=== PATIENT | female | born 1980 | race Caucasian/White ===

== ENCOUNTER → 2016-06-19 | Outpatient (CLI) | payer MEDICAID ==
[2016-06-19 16:09] LABS: HEMATOCRIT 36.6 % (36.0-47.0); HEMOGLOBIN 11.8 g/dL (12.0-15.5); HGB HCT DIFFERENCE -1.2; MEAN CORPUSCULAR HGB CONC 32.3 g/dL (32.0-36.0); MEAN CORPUSCULAR VOLUME 90 fl (80-97); RED BLOOD COUNT 4.08 10^6/uL (3.72-5.28); RED CELL DISTRIBUTION WIDTH 13.9 % (11.5-14.0); WHITE BLOOD COUNT 7.4 10^3/uL (4.0-10.5)
[2016-06-19 16:29] LABS: ALANINE AMINOTRANSFERASE 32 U/L (9-52); ALBUMIN 3.8 g/dL (3.5-5.0); ALKALINE PHOSPHATASE 89 U/L (38-126); ANION GAP 13 (5-19); ASPARTATE AMINO TRANSFERASE 25 U/L (14-36); BILIRUBIN,TOTAL 0.5 mg/dL (0.2-1.3); BLOOD UREA NITROGEN 13 mg/dL (7-20); CALCIUM 9.3 mg/dL (8.4-10.2); CARBON DIOXIDE 23 mmol/L (22-30); CHLORIDE 106 mmol/L (98-107); CREATININE RESULT 0.79 mg/dL (0.52-1.25); GLUCOSE 73 mg/dL (75-110); POTASSIUM 4.1 mmol/L (3.6-5.0); SODIUM 141.9 mmol/L (137-145); TOTAL PROTEIN 7.3 g/dL (6.3-8.2)
[2016-06-19 16:54] LABS: THYROID STIMULATING HORMONE 1.78 uIU/mL (0.47-4.68)
== END ==
LOC: OD 15:01
PROVIDERS: ATTEND Physician Assistant Surgical
DX: R63.4 Abnormal weight loss (principal)
CPT/HCPCS: 36415; 80053; 84439; 84443; 85027

== ENCOUNTER → 2016-08-28 | Outpatient (CLI) | payer MEDICAID | LOC: OD 15:22 | PROVIDERS: ATTEND Internal Medicine Gastroenterology | DX: R93.5 Abnormal findings on diagnostic imaging of other abdominal regions, including retroperitoneum (principal) | CPT/HCPCS: 74020 ==

== ENCOUNTER 2017-03-19 07:41 | Emergency (ER) | payer MEDICAID ==
[2017-03-19] MEDS ORDERED: PANTOPRAZOLE SODIUM 40 MG VIAL IV ONE (07:47)
--- NOTE | 2017-03-19 07:51 | ER Document Report ---
ED General - General Stated Complaint: VOMITING Time Seen by Provider: 03/19/17 07:46 Notes: 36-year-old female with cerebral palsy mental retardation, baseline nonverbal, presents via EMS from [facility] for reported emesis. A couple times she vomited, and apparently was malodorous and "like coffee grounds." She had borderline hypertension which is her baseline, en route with EMS and her normal heart rate. She is unable to communicate and tell me what is going on. Apparently per the facility she has not been eating or drinking or interacting as much lately. TRAVEL OUTSIDE OF THE [place] IN LAST 30 DAYS: No - Related Data Allergies/Adverse Reactions: amoxicillin [From Augmentin] Adverse Reaction (Intermediate, Verified 03/06/16 16:35) Diarrhea clavulanic acid [From Augmentin] Adverse Reaction (Intermediate, Verified 16:35) Diarrhea Past Medical History - Social History Smoking Status: Never Smoker Family History: None - Past Medical History Cardiac Medical History: Denies: Hx Coronary Artery Disease, Hx Heart Attack, Hx Hypertension Pulmonary Medical History: Denies: Hx Asthma, Hx Bronchitis, Hx COPD, Hx Pneumonia Neurological Medical History: Denies: Hx Cerebrovascular Accident, Hx Seizures Musculoskeltal Medical History: Reports Hx Arthritis - HIPS Past Surgical History: Denies: Hx Hysterectomy - Immunizations Hx Diphtheria, Pertussis, Tetanus Vaccination: Yes - 03/03/08 Hx Pneumococcal Vaccination: 04/15/07 Course - Re-evaluation Re-evalutation: 03/19/17 09:25 Patient presents with vomiting a few times as well as decreased oral intake, suspected coffee-ground that facility. This cannot be verified. Her abdomen is benign and her vital signs are normal. She had a stool in her diaper which I looked at, and was clearly brown with no blood. She did not vomit in the ED. Differential includes vomiting from constipation or other source such as UTI, Isabel-Antunez tear, doubt serious GI bleed. Labs were sent and show slightly decreased hemoglobin from baseline of 12-11.3. Remainder of labs are normal, including no signs of acute kidney injury from dehydration. X-rays are pending for obstruction. Patient is well appearing, and will be empirically hydrated in the ED. 03/19/17 10:15 Patient's x-ray shows large amount of stool in the colon without obstruction. Labs are significant for very mild elevated white count and slightly decreased hemoglobin. Despite this I still do not think the patient's having a GI bleed. She has a history of ruminating vomiting and chewing and vomiting and chewing her food. I spoke with her appraisal technician who states that she is about at her baseline. After hydration she was given pudding and tolerated this. I think that she is stable for discharge but should be referred to GI for a possible slow GI bleed, this was done and I told the appraisal technician about it. Insert discharge - Laboratory Result Diagrams: 03/19/17 08:25 03/19/17 08:25 Laboratory results interpreted by me: 03/19/17 08:25 WBC 12.0 H Hgb 11.3 L Hct 35.3 L RDW 14.1 H Absolute Neutrophils 8.7 H - Diagnostic Test Radiology reviewed: Image reviewed, Reports reviewed Discharge - Discharge Clinical Impression: Vomiting Condition: Good Disposition: HOME, SELF-CARE Additional Instructions: There may have been some blood in the vomit today however the lab testing was essentially normal. That said, I am referring you to gastroenterology because you might require an endoscopy. Return to the ER for black stool dizziness low blood pressure or further vomiting containing blood. Referrals: TESSY MÉNDEZ MD [Primary Care Provider] - Follow up as needed [facility]STR[facility] [Provider Group] - Follow up in 1 week
[2017-03-19 08:49] LABS: ABSOLUTE BASOPHILS # (AUTO) 0.1 10^3/uL (0.0-0.2); ABSOLUTE EOSINOPHILS # (AUTO) 0.2 10^3/uL (0.0-0.6); ABSOLUTE LYMPHOCYTES (AUTO) 2.3 10^3/uL (0.5-4.7); ABSOLUTE MONOCYTES (AUTO) 0.8 10^3/uL (0.1-1.4); ABSOLUTE NEUT (AUTO) 8.7 10^3/uL (1.7-8.2); BASOPHILS % (AUTO) 0.4 % (0-2); EOSINOPHILS % (AUTO) 1.3 % (0-6); HEMATOCRIT 35.3 % (36.0-47.0); HEMOGLOBIN 11.3 g/dL (12.0-15.5); HGB HCT DIFFERENCE -1.4; LYMPHOCYTES % (AUTO) 19.4 % (13-45); MEAN CORPUSCULAR HEMOGLOBIN 28.9 pg (27.0-33.4); MEAN CORPUSCULAR HGB CONC 32.1 g/dL (32.0-36.0); MEAN CORPUSCULAR VOLUME 90 fl (80-97); MONOCYTES % (AUTO) 6.3 % (3-13); RED BLOOD COUNT 3.91 10^6/uL (3.72-5.28); RED CELL DISTRIBUTION WIDTH 14.1 % (11.5-14.0); SEGMENTED NEUTROPHILS % (AUTO) 72.6 % (42-78)
[2017-03-19 08:54] LABS: APPEARANCE,URINE CLEAR; BILIRUBIN,URINE NEGATIVE (NEGATIVE); GLUCOSE, URINE NEGATIVE (NEGATIVE); KETONES,URINE NEGATIVE (NEGATIVE); LEUKOCYTE ESTERASE,URINE NEGATIVE (NEGATIVE); NITRITE,URINE NEGATIVE (NEGATIVE); PROTEIN,URINE NEGATIVE (NEGATIVE); URINE SPECIFIC GRAVITY 1.005; UROBILINOGEN,URINE NEGATIVE mg/dL (<2.0)
[2017-03-19 08:58] LABS: WBC,URINE 0-1 /HPF
[2017-03-19 09:06] LABS: ANION GAP 11 (5-19); BLOOD UREA NITROGEN 19 mg/dL (7-20); CALCIUM 8.5 mg/dL (8.4-10.2); CARBON DIOXIDE 26 mmol/L (22-30); CHLORIDE 105 mmol/L (98-107); CREATININE RESULT 0.53 mg/dL (0.52-1.25); GLUCOSE 76 mg/dL (75-110); LIPASE 202.3 U/L (23-300); POTASSIUM 4.6 mmol/L (3.6-5.0); SODIUM 142.3 mmol/L (137-145)
[2017-03-19] MEDS ORDERED: NORMAL SALINE 1000 ML 1,000 ML IV ONE (09:25)
--- NOTE | 2017-03-19 09:53 | RADIOLOGY REPORT (SQ) ---
EXAM DESCRIPTION: ABDOMEN 2 VIEWS COMPLETED DATE/TIME: 03/19/2017 9:44 am REASON FOR STUDY: ?vomiting "stool" r/o hi grade sbo COMPARISON: 08/28/2016. NUMBER OF VIEWS: Two views. TECHNIQUE: Supine and erect/decubitus radiographic images of the abdomen acquired. LIMITATIONS: None. FINDINGS: FREE AIR: None. No abnormal gas collections. LUNG BASES: Clear. BOWEL GAS PATTERN: Nonobstructive pattern. No dilated loops or air fluid levels. Large amount stool throughout the colon. CALCIFICATIONS: No suspicious calcifications. SOFT TISSUES: No gross mass or suggestion of organomegaly. HARDWARE: None in the abdomen. BONES: No acute fracture. Chronic deformity of both hips with subluxation. OTHER: No other significant finding. IMPRESSION: LARGE AMOUNT STOOL THROUGHOUT THE COLON. NO RADIOGRAPHIC EVIDENCE FOR ACUTE ABDOMINAL D ISEASE. TECHNICAL DOCUMENTATION: JOB ID: [id number] [employer]- All Rights Reserved
[2017-03-19] MEDS ORDERED: ONDANSETRON HCL INJ/PF 4 MG/2 ML SDV IV ONE (10:19)
[2017-03-19 12:23] VITALS: BP 121/84
== END 2017-03-19 12:23 | disposition home or self-care (01) ==
LOC: ER 07:41
DX: R11.10 Vomiting, unspecified (principal); G80.9 Cerebral palsy, unspecified; F79 Unspecified intellectual disabilities; D72.829 Elevated white blood cell count, unspecified; R71.0 Precipitous drop in hematocrit
CPT/HCPCS: 99284; 96361; 51701; 96375; 96365; 36415; 87086; 83690; 85025; 80048; 81001; 74020; S0164; J2405; J7030